=== PATIENT | female | born 1975 | race Caucasian/White ===

== ENCOUNTER 2024-04-28 16:08 | Emergency (ER) | payer OTHER, SELFPAY ==
[2024-04-28 16:36] VITALS: BP 139/73; PULSE 77; RESP 16; TEMP 36.5; O2SAT 100; BMI 31.2
--- NOTE | 2024-04-28 16:36 | ED.ABDPAIN ---
HPI - Abdominal Pain General Chief Complaint: Abdominal Pain Stated Complaint: abd pain x1wk Time Seen by Provider: 04/28/24 18:51 History of Present Illness ED Provider: Dr. Arizmendi HPI narrative: 48 y/o F patient; without significant PMH; presents from home reporting one week of epigastric abdominal pain that is worse with PO intake. The patient states it has been associated with x3 episodes of nausea/vomiting. She denies: fever/chills, SOB, cough/congestion, diarrhea. The patient has an appointment with her PCP next week. Related Data Allergies Allergy/AdvReac Type Severity Reaction Status Date / Time Sulfa (Sulfonamide Allergy Vomiting Verified 04/28/24 16:38 Antibiotics) Review of Systems Review of Systems Yes all other systems are reviewed and are negative Denies Sensory deficit (Neuro) PMFSH Past Medical History Attestation statement: The following information was validated with the patient. Source: old records reviewed Social History Social History Advance Directives: No Advance Directives Information Provided: Yes Physical Exam ED Vital Signs: Vital Signs - 24 hr 04/28/24 16:36 04/28/24 19:08 Temperature 97.7 F 97.7 F Pulse Rate 77 73 Respiratory Rate 16 18 Blood Pressure 139/73 114/71 Pulse Oximetry 100 100 Oxygen Delivery Method Room Air Room Air BMI result Body Mass Index 31.2 Const General: cooperative and no acute distress Orientation/consciousness: patient oriented x3 HENMT Head: Yes normal to inspection and Yes atraumatic Eyes General: appearance normal, both eyes and all related structures Pupils: Equal, round and reactive pupils present EOM: EOMs intact bilaterally Neck Neck: Yes normal visual inspection, Yes full ROM, Yes supple and No tender Chest Chest palpation & inspection: normal inspection of the chest and normal palpation of entire chest wall Resp Effort & Inspection: normal respiratory effort, able to speak in complete sentences, no cough and no respiratory distress Auscultation: clear to auscultation bilaterally Cardio Rate: regular rate Rhythm: regular rhythm Peripheral pulses: Peripheral pulses 2+ throughout GI Inspection: Yes normal to inspection, No Abdominal wall edema and No distended Palpation (GI): Soft to palpation, not firm, nontender, no guarding and not rigid Auscultation: normal bowel sounds Back/Spine/Pelvis Back: No back tenderness Neuro General: patient oriented x3 Cranial nerves: Yes Equal, round and reactive pupils present Motor exam (neuro): 5/5 motor strength present throughout Sensory Exam: No Sensory deficit (Neuro) Course Course Course Narrative: This is a Rapid Medical Examination (RME) performed by Trudy Glasgow PA-C in triage. Full HPI, ROS, assessment and treatment plan per primary provider in the Main ED. 48 yo female constant epigastric abd pain x1 week, waxes and wanes in intensity, worse w/ eating. +nausea and 3 episodes of vomiting. no diarrhea, fever/chills, urinary symptoms. has appointment w/ PCP next week. + abd soft, ND/NT, no rebound or guarding. Plan: labs, viral serology Reevaluation(s) Reevaluation #1: Patient is afebrile and hemodynamically stable. Reviewed triage work up. No leukocytosis. Appropriate CMP and lipase. Negative COVID/Flu/RSV. Patient's abdomen is soft and non-tender. Possibility of gastritis versus PUD. No indication for CT imaging at this time. Plan: Discharge to home with PCP follow up Return precautions given Medical Decision Making Lab Data 04/28/24 17:11 04/28/24 17:11 Labs: Lab Results 04/28/24 Range/Units 17:11 WBC 8.2 (4.8-10.8) X10*3/uL RBC 4.63 (4.20-5.50) X10*6/uL Hgb 14.6 (12.0-16.0) g/dl Hct 44.1 (37.0-47.0) % MCV 95.2 (80.0-98.0) fL MCH 31.5 (27.0-33.0) pg MCHC 33.1 (31.0-35.0) g/dl RDW 12.5 (11.0-16.0) % Plt Count 171 (160-400) X10*3/uL MPV 11.7 (9.4-12.3) fL Immature Gran % (Auto) 0.4 (0.0-0.4) % Neut % (Auto) 74.6 H (45-73) % Lymph % (Auto) 17.8 L (20-40) % Ware % (Auto) 5.7 (2-11) % Eos % (Auto) 1.1 (0-4) % Baso % (Auto) 0.4 (0-2) % Lymph # (Auto) 1.5 (1.2-4.9) X10*3/uL Ware # (Auto) 0.5 (0.1-1.2) X10*3/uL Eos # (Auto) 0.1 (0.0-0.4) X10*3/uL Baso # (Auto) 0.0 (0.0-0.2) X10*3/uL Abs Immat Gran (auto) 0.03 (0.00-0.03) X10*3/uL Absolute Neuts (auto) 6.1 (2.0-8.3) x10*3/uL Absolute Nucleated RBC 0.000 (0.0-0.012) X10*3/uL Nucleated RBC % (auto) 0.0 (0.0-0.2) /100WBC Smear Tech's Comments VERIFIED Sodium 137 (135-145) mmol/L Potassium 4.2 (3.3-5.1) mmol/L Chloride 111 H (96-108) mmol/L Carbon Dioxide 15 L (22-29) mmol/L Anion Gap 15 (12-20) BUN 7 L (9-16) mg/dL Creatinine 0.69 (0.5-1.4) mg/dL Estim Creat Clear Calc 93.8 Estimated GFR > 60 Random Glucose 83 (60-115) mg/dL Calcium 9.6 (8.4-10.2) mg/dL Magnesium 2.5 (1.6-2.6) mg/dL Total Bilirubin 0.3 (0.0-1.0) mg/dL AST 17 (5-31) U/L ALT 12 (0-31) U/L Alkaline Phosphatase 74 (39-117) U/L Total Protein 6.9 (6.5-8.0) g/dL Albumin 4.0 (3.5-5.0) g/dL Lipase 16 (8-78) U/L Influenza Type A (PCR) NEGATIVE (Negative) Influenza Type B (PCR) NEGATIVE (Negative) RSV RNA Qual (PCR) NEGATIVE (Negative) SARS-CoV-2 RNA (RT-PCR) NEGATIVE (Negative) Discharge Plan Discharge Print Language: [place]
[2024-04-28 17:19] LABS: Mean Platelet Volume 11.7 fL (9.4-12.3); PLT CLUMP 1; Red Cell Distribution Width 12.5 % (11.0-16.0); SCAN SMEAR FLAG 1
[2024-04-28 17:21] LABS: Basophils Percent Auto 0.4 % (0-2); Eosinophils Absolute Auto 0.1 X10*3/uL (0.0-0.4); Eosinophils Percent Auto 1.1 % (0-4); Hematocrit 44.1 % (37.0-47.0); Hemoglobin 14.6 g/dl (12.0-16.0); Imm Gran Abs Auto 0.03 X10*3/uL (0.00-0.03); Imm Gran Pct Auto 0.4 % (0.0-0.4); Lymphocytes Absolute Auto 1.5 X10*3/uL (1.2-4.9); Lymphocytes Percent Auto 17.8 % (20-40); MANUAL DIFF FLAG SCAN; Mean Corpuscular HGB Conc 33.1 g/dl (31.0-35.0); Mean Corpuscular Hemoglobin 31.5 pg (27.0-33.0); Mean Corpuscular Volume 95.2 fL (80.0-98.0); Monocytes Absolute Auto 0.5 X10*3/uL (0.1-1.2); Monocytes Percent Auto 5.7 % (2-11); Neutrophils Absolute Auto 6.1 x10*3/uL (2.0-8.3); Neutrophils Percent Auto 74.6 % (45-73); Red Blood Count 4.63 X10*6/uL (4.20-5.50)
[2024-04-28 17:40] LABS: Alanine Aminotransferase 12 U/L (0-31); Alkaline Phosphatase 74 U/L (39-117); Anion Gap 15 (12-20); Aspartate Amino Transferase 17 U/L (5-31); Bilirubin Total 0.3 mg/dL (0.0-1.0); Blood Urea Nitrogen 7 mg/dL (9-16); Calcium 9.6 mg/dL (8.4-10.2); Carbon Dioxide 15 mmol/L (22-29); Chloride 111 mmol/L (96-108); Creatinine Clr Calc Pharmacy 93.8; Estimated Glomerular Filt Rate > 60; Glucose Random 83 mg/dL (60-115); Lipase 16 U/L (8-78); Magnesium 2.5 mg/dL (1.6-2.6); Potassium 4.2 mmol/L (3.3-5.1); Sodium 137 mmol/L (135-145); Total Protein 6.9 g/dL (6.5-8.0)
[2024-04-28 17:48] LABS: Platelet Count 171 X10*3/uL (160-400); White Blood Count 8.2 X10*3/uL (4.8-10.8)
[2024-04-28 17:49] LABS: SLIDE REVIEW VERIFIED
[2024-04-28 17:56] LABS: Influenza A PCR NEGATIVE (Negative); Influenza B PCR NEGATIVE (Negative); Resp Syncy Virus RNA Qual PCR NEGATIVE (Negative); SARS COV2 PCR INHOUSE NEGATIVE (Negative)
[2024-04-28 19:08] VITALS: BP 114/71; PULSE 73; RESP 18; TEMP 36.5; O2SAT 100
== END 2024-04-28 20:29 | disposition left against medical advice (07) ==
PROVIDERS: Physician Assistant Medical; Emergency Provider Emergency Medicine
DX: R10.9 Unspecified abdominal pain (principal); R11.2 Nausea with vomiting, unspecified; Z03.818 Encounter for observation for suspected exposure to other biological agents ruled out
CPT/HCPCS: 0241U; 36415; 80053; 83690; 83735; 85025; 99281; 99283

== ENCOUNTER 2024-05-05 08:13 | Outpatient (AMB) | payer OTHER, SELFPAY ==
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
[2024-05-05 08:19] VITALS: BP 118/72; PULSE 80; RESP 15; TEMP 36.6; O2SAT 98; BMI 30.9
== END 2024-05-05 09:29 | disposition home or self-care (01) ==
PROVIDERS: Visit Provider Physician Assistant Medical
DX: Z00.00 Encounter for general adult medical examination without abnormal findings (principal); R63.5 Abnormal weight gain; R10.13 Epigastric pain; Z72.0 Tobacco use; F31.81 Bipolar II disorder
CPT/HCPCS: 93000; 99386

== ENCOUNTER 2024-05-05 09:33 | Outpatient (REF) | payer OTHER, SELFPAY ==
[2024-05-05 11:06] LABS: MANUAL DIFF FLAG NO
[2024-05-05 11:20] LABS: Basophils Percent Auto 0.5 % (0-2); Eosinophils Absolute Auto 0.1 X10*3/uL (0.0-0.4); Eosinophils Percent Auto 0.7 % (0-4); Hemoglobin 14.4 g/dl (12.0-16.0); Imm Gran Abs Auto 0.04 X10*3/uL (0.00-0.03); Imm Gran Pct Auto 0.5 % (0.0-0.4); Lymphocytes Absolute Auto 1.7 X10*3/uL (1.2-4.9); Lymphocytes Percent Auto 19.4 % (20-40); Mean Corpuscular HGB Conc 33.5 g/dl (31.0-35.0); Mean Corpuscular Volume 92.7 fL (80.0-98.0); Mean Platelet Volume 11.7 fL (9.4-12.3); Monocytes Absolute Auto 0.5 X10*3/uL (0.1-1.2); Monocytes Percent Auto 5.1 % (2-11); Neutrophils Absolute Auto 6.5 x10*3/uL (2.0-8.3); Neutrophils Percent Auto 73.8 % (45-73); Platelet Count 305 X10*3/uL (160-400); Red Blood Count 4.64 X10*6/uL (4.20-5.50); Red Cell Distribution Width 12.5 % (11.0-16.0); White Blood Count 8.8 X10*3/uL (4.8-10.8)
[2024-05-05 12:09] LABS: Alanine Aminotransferase 13 U/L (0-31); Albumin Level 4.5 g/dL (3.5-5.0); Alkaline Phosphatase 70 U/L (39-117); Anion Gap 14 (12-20); Aspartate Amino Transferase 14 U/L (5-31); Bilirubin Total 0.3 mg/dL (0.0-1.0); Blood Urea Nitrogen 8 mg/dL (9-16); Carbon Dioxide 26 mmol/L (22-29); Chloride 105 mmol/L (96-108); Cholesterol 195 mg/dL (<200); Estimated Glomerular Filt Rate > 60; Glucose Random 90 mg/dL (60-115); HDL Cholesterol 46 mg/dL (>40); LDL Cholesterol Calculated 135 mg/dL (<100); Lipase 20 U/L (8-78); Potassium 3.6 mmol/L (3.3-5.1); Sodium 141 mmol/L (135-145); Total Protein 7.2 g/dL (6.5-8.0); Triglycerides 73 mg/dL (<150)
[2024-05-05 12:18] LABS: TSH reflex Free T4 1.66 uIU/mL (0.32-4.0)
[2024-05-05 14:16] LABS: Amylase 44 U/L (28-100)
== END 2024-05-05 09:34 | disposition home or self-care (01) ==
LOC: HO.WFDLDS 09:33
PROVIDERS: Visit Provider Physician Assistant Medical
DX: Z13.6 Encounter for screening for cardiovascular disorders (principal); R10.13 Epigastric pain; R63.5 Abnormal weight gain; E66.9 Obesity, unspecified
CPT/HCPCS: 36415; 80053; 80061; 82150; 83690; 84443; 85025

== ENCOUNTER 2024-07-07 11:38 | Outpatient (AMB) | payer OTHER, SELFPAY ==
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
[2024-07-07 11:51] VITALS: BP 112/74; PULSE 97; O2SAT 97; BMI 30.8
== END 2024-07-07 15:33 | disposition home or self-care (01) ==
LOC: HO.HMCFM 11:39
PROVIDERS: Visit Provider Physician Assistant Medical
DX: R10.13 Epigastric pain (principal); K21.9 Gastro-esophageal reflux disease without esophagitis; F31.81 Bipolar II disorder; Z72.0 Tobacco use

== ENCOUNTER → 2024-07-07 11:38 | Outpatient (BNVA) | payer OTHER, SELFPAY | PROVIDERS: Visit Provider Physician Assistant Medical ==